=== PATIENT | female | born 1940 | race Caucasian/White ===

== ENCOUNTER 2018-07-26 05:54 | Day surgery (SDC) | payer MEDICARE, OTHER ==
[2018-07-26] MEDS ORDERED: DIPRIVAN 200 MG/20 ML IV ONE (05:55)
[2018-07-26] MEDS ORDERED: Lactated Ringers 1,000 ML IV SCH (06:00)
[2018-07-26] MEDS ORDERED: Lactated Ringers 1,000 ML IV ONE (07:48)
--- NOTE | 2018-07-26 08:10 | OP ---
SURGERY DATE/TIME: 07/26/2018 0727 PREOPERATIVE DIAGNOSIS: Screening exam. POSTOPERATIVE DIAGNOSIS: Small polyp in the transverse colon. PROCEDURE: Colonoscopy with biopsy. SURGEON: Dr. Ruiz. ANESTHESIA: MAC. Medications given by anesthesia department. HISTORY: The patient is a 78 year-old white female presenting now for screening colonoscopy. She was appraised of the risks of the procedure including the risk of perforation, phlebitis, untoward reaction to medication, bleeding and missed lesions. The patient verbalized her understanding and desired to have the procedure performed. DESCRIPTION OF PROCEDURE: The patient was given the medications by the anesthesia department. She had continuous pulse oximetry, ECG monitoring, intermittent blood pressure monitoring and tidal CO2 monitoring during the examination. She was placed in the left lateral decubitus position. A digital rectal examination was performed and revealed normal anal sphincter tone and no masses. The flexible Olympus pediatric colonoscope was used to intubate the rectum. A view of the colon was developed sequentially to the cecum. Upon insertion and withdrawal there was noted a small polyp measuring approximately 1 cm in diameter in the transverse colon near the hepatic flexure this is destroyed using passes with the cold biopsy forceps to destroy the lesion. Upon insertion and withdrawal including a retroflex view in the rectum, no mucosal lesions being encountered. The scope was removed from the patient who tolerated the procedure well and was sent back to OP recovery in good condition. The prep was noted to be fair to good.
[2018-07-26 09:12] VITALS: BP 139/75; PULSE 68; O2SAT 95
== END 2018-07-26 09:00 | disposition home or self-care (01) ==
LOC: SDC 05:54
PROVIDERS: ATTEND Family Medicine
DX: Z12.11 Encounter for screening for malignant neoplasm of colon (principal); K63.5 Polyp of colon; E03.9 Hypothyroidism, unspecified
CPT/HCPCS: 88305; 94250; 99100; J2704

== ENCOUNTER 2021-05-15 06:36 | Day surgery (SDC) | payer MEDICARE, OTHER ==
--- NOTE | 2021-05-08 09:39 | HP ---
DATE OF SURGERY: 05/15/2021 HISTORY OF PRESENT ILLNESS: The patient presented with complaints of hemorrhoids going in and out, feels a round ball. It has been symptomatic at times. The patient also has a history of some colon polyps. She is due for colonoscopy. PAST MEDICAL HISTORY: Hypothyroidism, hypertension, gout, gastroesophageal reflux disease. PAST SURGICAL HISTORY: Tonsillectomy. Hysterectomy. Cholecystectomy. Thyroidectomy. ALLERGIES: SULFA. MEDICATIONS: Calcium, PreserVision, metoprolol, Allopurinol, benazepril, Tirosint, omeprazole, Claritin, magnesium. FAMILY HISTORY: Heart disease. Hypertension. Diabetes. Cirrhosis of the liver. SOCIAL HISTORY: None reported. REVIEW OF SYSTEMS: CONSTITUTIONAL: Denies fever or chills. CHEST: Denies shortness of breath. CVS: Denies chest pain. ABDOMEN: Soft. PHYSICAL EXAMINATION: GENERAL: No acute distress. CHEST: Nonlabored. No shortness of breath. CVS: Regular rate and rhythm. ABDOMEN: Soft. IMPRESSION: Symptomatic hemorrhoids and history of colon polyps. PLAN: Hemorrhoidectomy and colonoscopy with Dr. Clifton Aguirre. As dictated by Ashlee Abebe NP.
[2021-05-15] MEDS ORDERED: EXPAREL 266 MG/20 ML VIAL IJ ONE (06:37)
[2021-05-15] MEDS ORDERED: MEFOXIN 2 GM PREMIX** 50 ML IV ONE (06:46)
[2021-05-15] MEDS ORDERED: Lactated Ringers 1,000 ML IV SCH (07:00)
[2021-05-15] MEDS ORDERED: MEFOXIN 2 GM PREMIX** 2 GM/50 ML ML IV SCH (07:00)
[2021-05-15] MEDS ORDERED: Zofran 4 MG/2 ML VIAL ONE (09:32)
[2021-05-15] MEDS ORDERED: Decadron 4 MG INJ ONE (09:32)
[2021-05-15] MEDS ORDERED: DIPRIVAN 200 MG/20 ML IV ONE (09:32)
[2021-05-15] MEDS ORDERED: Xylocaine-Mpf 2% 5 Ml Vial ONE (09:32)
[2021-05-15] MEDS ORDERED: SUBLIMAZE 100 MCG/2 ML ONE ×2 (09:32→10:57)
[2021-05-15] MEDS ORDERED: TORAdol 30 mg Injection ONE (09:33)
[2021-05-15 12:00] VITALS: O2SAT 98
[2021-05-15 12:32] VITALS: PULSE 69
[2021-05-15 12:33] VITALS: BP 140/67
--- NOTE | 2021-05-15 14:03 | OP ---
SURGERY DATE/TIME: 05/15/2021 0935 PREOPERATIVE DIAGNOSIS: Severe hemorrhoids with thrombosis and ulceration. POSTOPERATIVE DIAGNOSES: 1) Severe hemorrhoids with thrombosis and ulceration. 2) The patient has history of polyps. PROCEDURES: 1) Colonoscopy to cecum, normal findings except for hemorrhoids. 2) Complex hemorrhoidectomy, open hemorrhoidectomy, 3 internal and 3 external. SURGEON: Clifton Aguirre M.D. ANESTHESIA: General. COMPLICATIONS: None. CONDITION: Stable. INDICATION: The patient has some prolapsed hemorrhoids which were both thrombosed and ulcerative. She was seen and examined in the office. She is also due for colonoscopy. She has had a history of polyps. DESCRIPTION OF PROCEDURE: She is taken to surgery. General anesthetic. Lithotomy, routine positioning. The scope introduced. Scope advanced up to the cecum. Base of the cecum, ileocecal valve was normal. On circumferential withdrawal ascending, hepatic, transverse, splenic, descending, sigmoid, rectum other than hemorrhoids was normal. There were three internal and three external hemorrhoids. At least one of the internal was ulcerated. At least one of the internal and one of the external was thrombosed for a total of six hemorrhoids, three internal and three external. The internal hemorrhoids were secured with stay suture. The mucosa was scored and the hemorrhoid tissue clamped and closed with 2-0 chromic. The externals were open and the hemorrhoid tissue was dissected from the mucosa clamped, secured with 2-0 Prolene. The patient tolerated the procedure satisfactorily. 20 cc of Exparel was placed 360 degrees around the anus.
== END 2021-05-15 12:45 | disposition home or self-care (01) ==
LOC: SDC 06:36
PROVIDERS: ATTEND Surgery
DX: K64.5 Perianal venous thrombosis (principal); K64.8 Other hemorrhoids; Z86.010 Personal history of colon polyps; Z79.899 Other long term (current) drug therapy
CPT/HCPCS: J0694; J1100; J1885; J2405; J2704; J3010